=== PATIENT | male | born 1970 | race Caucasian/White ===

== ENCOUNTER 2016-08-02 20:08 | Emergency (ER) | payer OTHER ==
[2016-08-02 20:18] VITALS: BP 138/94; PULSE 75; TEMP 97.4; BMI 27.4
[2016-08-02] MEDS ORDERED: METOCLOPRAMIDE HCL INJECTION 10 MG/2 ML VIAL ONE (20:49)
--- NOTE | 2016-08-02 20:54 | PDOC ---
History of Present Illness - General Chief Complaint: Headache Stated Complaint: HEADACHE Time Seen by Provider: 08/02/16 20:18 History Source: Patient Exam Limitations: No Limitations - History of Present Illness Initial Comments: 08/02/16 20:51 46-year-old male with a history of hypertension, hyperlipidemia, migraines presents to the emergency department complaining of 6/10 nonradiating intermittent frontal/bitemporal headache x approximately 2 weeks. Patient states the pain was 8/102 weeks ago for 4 days and has come down to 6/10 for the past 2 days. The pain is associated with photophobia/phonophobia, nausea but no vomiting. Patient denies fever, dizziness, lightheadedness, neck pain, visual disturbance, back pains, chest pain, shortness of breath, extremity numbness or tingling sensation. There are no exacerbating or alleviating factors. Patient states he did not try taking any pain medication. Patient denies this being is the worst headache he's ever had. Timing/Duration: reports: other ([id number]) Associated Symptoms: reports: nausea/vomiting. denies: fever/chills, numbness in legs/feet, tingling in legs/feet Past History - Past Medical History Allergies/Adverse Reactions: Allergies Allergy/AdvReac Type Severity Reaction Status Date / Time No Known Allergies Allergy Verified 08/02/16 20:17 Home Medications: Ambulatory Orders Atorvastatin Calcium 10 mg PO HS 08/02/16 Losartan Potassium 25 mg PO DAILY 08/02/16 HTN: Yes - Immunization History Immunization Up to Date: Yes - Psycho/Social/Smoking Cessation Hx Suicidal Ideation: No Smoking Status: No Smoking History: Never smoked Have you smoked in the past 12 months: No Number of Cigarettes Smoked Daily: 0 Hx Alcohol Use: Yes (weekends) Drug/Substance Use Hx: No Substance Use Type: None Review of Systems - Review of Systems Able to Perform ROS?: Yes Comments:: 08/02/16 20:51 CONSTITUTIONAL: Absent: fever, chills, diaphoresis, generalized weakness, malaise, loss of appetite HEENT: Absent: rhinorrhea, nasal congestion, throat pain, throat swelling, difficulty swallowing, mouth swelling, ear pain, eye pain, visual Changes CARDIOVASCULAR: Absent: chest pain, loss of consciousness, palpitations, irregular heart rate, peripheral edema RESPIRATORY: Absent: cough, shortness of breath, dyspnea with exertion, orthopnea, wheezing, stridor, hemoptysis GASTROINTESTINAL: Absent: abdominal pain, abdominal distension, nausea, vomiting, diarrhea, constipation, melena, hematochezia GENITOURINARY: Absent: dysuria, frequency, urgency, hesitancy, hematuria, flank pain, genital pain MUSCULOSKELETAL: Absent: myalgia, arthralgia, joint swelling SKIN: Absent: rash, itching, pallor HEMATOLOGIC/IMMUNOLOGIC: Absent: easy bleeding, easy bruising, lymphadenopathy, frequent infections ENDOCRINE: Absent: unexplained weight gain, unexplained weight loss, heat intolerance, cold intolerance NEUROLOGIC: +frontal VALDIVIA Absent: focal weakness or paresthesias, dizziness, unsteady gait, seizure, mental status changes, bladder or bowel incontinence PSYCHIATRIC: Absent: anxiety, depression, suicidal or homicidal ideation, hallucinations. Is the patient limited Sami proficient: No *Physical Exam - Vital Signs Last Vital Signs Temp Pulse Resp BP Pulse Ox 97.4 F L 75 18 138/94 99 08/02/16 20:14 08/02/16 20:14 08/02/16 20:14 08/02/16 20:14 08/02/16 20:14 - Physical Exam Comments: 08/02/16 20:51 GENERAL: Well developed, well nourished. Awake and alert. No acute distress. HEENT: Normocephalic, atraumatic. PERRLA, EOMI. No conjunctival pallor. Sclera are non- icteric. Moist mucous membranes. Oropharynx is clear. NECK: Supple. Full ROM. No JVD. Carotid pulses 2+ and symmetric, without bruits. No thyromegaly. No lymphadenopathy. CARDIOVASCULAR: Regular rate and rhythm. No murmurs, rubs, or gallops. Distal pulses are 2+ and symmetric. PULMONARY: No evidence of respiratory distress. Lungs clear to auscultation bilaterally. No wheezing, rales or rhonchi. ABDOMINAL: Soft. Non-tender. Non-distended. No rebound or guarding. No organomegaly. Normoactive bowel sounds. MUSCULOSKELETAL Normal range of motion at all joints. No bony deformities or tenderness. No CVA tenderness. EXTREMITIES: No cyanosis. No clubbing. No edema. No calf tenderness. SKIN: Warm and dry. Normal capillary refill. No rashes. No jaundice. NEUROLOGICAL: Alert, awake, appropriate. Cranial nerves 2-12 intact. No deficits to light touch and temperature in face, upper extremities and lower extremities. No motor deficits in the in face, upper extremities and lower extremities. Normoreflexic in the upper and lower extremities. Normal speech. Toes are down- going bilaterally. Gait is normal without ataxia. PSYCHIATRIC: Cooperative. Good eye contact. Appropriate mood and affect. Progress Note - Progress Note Progress Note: 2141hrs: Pt feels better *DC/Admit/Observation/Transfer Diagnosis at time of Disposition: Migraine without aura Qualifiers: Status migrainosus presence: without status migrainosus Intractability: not intractable Qualified Code(s): G43.009 - Migraine without aura, not intractable , without status migrainosus - Discharge Dispostion Condition at time of disposition: Improved Admit: No - Referrals Referrals: Carl Moser MD [Primary Care Provider] - Bib Mcneill MD [Staff Physician] - - Patient Instructions Printed Discharge Instructions: DI for Migraine Additional Instructions: Increase fluids Rest Tylenol or Motrin as needed for pain Return to the ER for severe/persistent/worsening symptoms
== END 2016-08-02 23:30 | disposition home or self-care (01) ==
LOC: JER 20:08
DX: G43.009 Migraine without aura, not intractable, without status migrainosus (principal); I10 Essential (primary) hypertension
CPT/HCPCS: 99282-25